=== PATIENT | female | born 1995 | race Caucasian/White ===

== ENCOUNTER 2024-07-20 06:11 | Day surgery (SDC) | payer BC, SELFPAY ==
[2024-07-20] VITALS (17 sets, daily range): BP systolic 118–139; BP diastolic 78–91; PULSE 74–97; RESP 14–20; TEMP 36.1–37; O2SAT 89–100; BMI 44.0
[2024-07-20 06:45] LABS: Ur HCG Qualitative* Negative (Negative)
--- NOTE | 2024-07-20 07:13 | W.PM.H&PU ---
History & Physical Update History & Physical Update H&P Reviewed and patient assessed: No changes noted
[2024-07-20] MEDS: 0.9 % SODIUM CHLORIDE 500 ML 500 ML 50 ML IV (07:15)
--- NOTE | 2024-07-20 07:16 | P.GSOP_ITS ---
Operative Note Date of procedure: 07/20/24 Pre-op diagnosis: 1. Right upper quadrant pain concerning for biliary colic. Post-op diagnosis: 1. Cholelithiasis. 2. Chronic cholecystitis. Type of Procedure: 1. Laparoscopic cholecystectomy. Indications: 29-year-old female was seen in clinic for evaluation of gallstones. The past 2- 3 years patient was having episodes of chest pain and abdominal pain. Her workup excluded cardiac etiology of her chest pain. She was found to have bicuspid aortic valve. Patient described the episodes of pain lasting from 20- 60 minutes after eating. She was not sure if greasy food was making her pain worse. She has been taking ibuprofen to help with her pain. Patient was referred for a gallbladder ultrasound that showed contracted gallbladder with cholelithiasis, the common bile duct was 3 mm in size. The gallbladder wall is 4 mm. On clinical exam she had no tenderness to palpation and had negative Reyes sign. Given patient's clinical history and her episodes of recurrent epigastric and right upper quadrant laparoscopic cholecystectomy was recommended. The procedure was discussed in detail. The risks associated procedure including infection, bleeding, injury to intra-abdominal organs, and injury to the common bile duct were all discussed with the patient, and she agreed to proceed. Procedure Description: After discussing the risks and benefits of the procedure, the patient signed informed consent.? The operative site was marked and the patient was brought to the operating room and placed on the operating table in supine position.? Care was taken to pad the patient's pressure points.?? The patient was then intubated by anesthesia.?? The operative site was then prepped and draped in the usual sterile fashion.? A time-out was then performed. A 5-mm laparoscopy port was placed in the left upper quadrant guided by a 5-mm laparoscope placed into a translucent trochar.~ Passage through the layers of the abdominal wall was visualized with the laparoscope.~ A pneumoperitoneum was established. A 0-degree 5-mm laparoscope was advanced into the abdomen. The abdomen was briefly surveyed, and no adhesions were noted. A 10-mm port were placed infraumbilically and two more 5 mm ports were placed on the right under direct visualization by laparoscope. The camera was then changed to 10 mm 30- degree scope and placed into the abdomen through the 10 mm port. The left upper quadrant port entrance was examined and no injury to intra-abdominal organs was identified. The gallbladder was identified, and was intrahepatic. The fundus grasped and retracted cephalad. Due to patient's body habitus I was barely able to identify infundibulum. The infundibulum was grasped and retracted laterally, exposing the peritoneum overlying the triangle of Calot. I stayed high on the gallbladder infundibulum to avoid injury to the duodenum which was immediately adjacent to the infundibulum. The peritoneum overlying the triangle of Calot was divided with hook cautery. The tissues surrounding the gallbladder infundibulum were difficult to dissect suggestive of chronic inflammation. The cystic artery was identified in the medial gallbladder and was dissected circumferentially bluntly and with hook cautery. The cystic artery was clearly going into the gallbladder. This was then clipped with two 5 mm clips on the patient's side and a single clip on the specimen side and divided with scissors. The tissues in the medial gallbladder fossa were further divided with hook cautery and bluntly with Sharifa dissector. A small vein was identified in the medial gallbladder fossa and that was going into the gallbladder. This was clipped with 5 mm clip on the specimen side and the patient's side and divided with scissors in between the clips. This had an appearance of small vein and inflammatory tissue. I then further dissected the gallbladder infundibulum. The tissues adjacent to the proximal infundibulum and distal cystic duct were very difficult to mobilize and separate from each other. The node of Calot was tightly adherent to the anterior infundibulum. A stayed high on the infundibulum to avoid injury to the common bile duct. The infundibulum of the gallbladder was then clipped with multiple 5 mm clips and divided between the clips to separate the gallbladder and cystic duct. A cuff of gallbladder mucosa was noted when the gallbladder was divided. The mucosa was cauterized with hook cautery. Since the infundibulum was not completely clamped across with 5 mm clips, I elected to put 2 0-0 PDS Endoloops just proximal to the clips to avoid cystic duct stump leak. The gallbladder was then dissected off the liver with hook cautery. This dissection was difficult given the intrahepatic nature of the gallbladder. The gallbladder wall was tearing apart and multiple stones spilled into the right upper quadrant. Those stones were removed through the 5 mm port. When the gallbladder was finally dissected off the gallbladder fossa, the camera was switched to a 5 mm camera and the gallbladder was placed into the Endo-Catch bag. Additional stones that were not previously removed were placed into the Endo-Catch bag as well. While removing the bag containing the gallbladder through the infraumbilical incision, the bag ripped and gallbladder and stones spilled onto the omentum. A new bag was then placed into the abdomen and gallbladder was placed into the new bag. All stones were collected and placed into the Endo-Catch bag. The fascia of the infraumbilical incision was then enlarged with cautery. The Endo-Catch bag containing the gallbladder was then removed from the abdomen. Surgical field was examined for bleeding and friable surface of the gallbladder fossa was cauterized. No bleeding was seen from the gallbladder fossa. The clips and Endoloops were in place. No additional stones were noted. The right upper quadrant was irrigated with normal saline. The fascia of the infraumbilical incision was then closed with a running 0-0 vicryl suture. This closure was examined intra-abdominally, and no intra- abdominal structures were incarcerated in the closure. Pneumoperitoneum was completely reduced after viewing removal of the trocars under direct vision. The skin was then closed with 4-0 monocryl and steristrips were applied. Instrument, sponge, and needle counts were correct at closure and at the conclusion of the case. The patient was transferred to PACU in stable condition. Findings: Chronic inflammation surrounding the gallbladder, multiple stones spilled into abdominal cavity. All the stones were collected and removed from the abdomen. Anesthesia: GETA Surgeon: Grazyna Mayorga MD Estimated blood loss (mL): 15 Specimen: Gallbladder Condition: stable Disposition: PACU
[2024-07-20] MEDS: SODIUM CHLORIDE 0.9 % (FLUSH) 10 ML SYRINGE IVF (07:25)
[2024-07-20] MEDS: CEFAZOLIN 2 GM INJ IVP (07:42)
[2024-07-20] MEDS: BUPIVACAINE 0.25% 30 ML INJECTION (09:47)
[2024-07-20] MEDS: LIDOCAINE 1%-EPI 1:100,000 20 ML INFILTRATI (09:47)
[2024-07-20] MEDS: 0.9 % SODIUM CHLORIDE 500 ML 500 ML 100 ML IV (10:22)
[2024-07-20] MEDS: ONDANSETRON 2 MG/ML inj 4 MG IVP (10:26)
[2024-07-20] MEDS: fentaNYL 100 MCG/2 ML inj 50 MCG IVP ×2 (10:34→10:43)
[2024-07-20] MEDS: HYDROCODONE-ACETAMIN 5-325 MG 1 TAB PO (12:07)
--- NOTE | 2024-07-24 18:26 | SUR.OPER ---
Preop time verification of chart completed by this nurse based on chart completion of Mary Leon and transfer to OR. Mary Peralta RN
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
== END 2024-07-20 12:39 | disposition home or self-care (01) ==
PROVIDERS: PCP Physician Assistant; Visit Provider Surgery
PROC: 0FT44ZZ Resection of Gallbladder, Percutaneous Endoscopic Approach (ICD-10-PCS; CPT 47562; principal; 2024-07-20 07:30)
DX: K80.10 Calculus of gallbladder with chronic cholecystitis without obstruction (principal); R10.11 Right upper quadrant pain
CPT/HCPCS: 47562; 00790; 81025; 88304; A9270; J0330; J0665; J0690; J1100; J1630; J2405; J2704; J3010; J3490; J7030

== ENCOUNTER 2024-07-20 16:03 | Emergency (ER) | payer BC, SELFPAY ==
[2024-07-20 16:08] VITALS: BP 117/85; PULSE 87; RESP 20; TEMP 36.8; O2SAT 94; BMI 43.3
--- NOTE | 2024-07-20 18:13 | ED_ITS ---
HPI - General Adult General Date Seen: 07/20/24 Chief complaint: Post Op Complication Stated complaint: Bleeding from belly button post op Time Seen by Provider: 07/20/24 18:16 History of Present Illness HPI narrative: 29-year-old female presenting to the ER today with concern for bleeding from her laparoscopic incision site at her belly button. She underwent a laparoscopic cholecystectomy by Dr. Yanez here at [facility] earlier today. From Dr. Mayorga's surgical note... A 10-mm port were placed infraumbilically and two more 5 mm ports were placed on the right under direct visualization by laparoscope. The camera was then changed to 10 mm 30-degree scope and placed into the abdomen through the 10 mm port. The left upper quadrant port entrance was examined and no injury to intra- abdominal organs was identified. The gallbladder was identified, and was intrahepatic. The fundus grasped and retracted cephalad. Due to patient's body habitus I was barely able to identify infundibulum. The infundibulum was grasped and retracted laterally, exposing the peritoneum overlying the triangle of Calot. I stayed high on the gallbladder infundibulum to avoid injury to the duodenum which was immediately adjacent to the infundibulum. The peritoneum overlying the triangle of Calot was divided with hook cautery. The tissues surrounding the gallbladder infundibulum were difficult to dissect suggestive of chronic inflammation. The cystic artery was identified in the medial gallbladder and was dissected circumferentially bluntly and with hook cautery. The cystic artery was clearly going into the gallbladder. This was then clipped with two 5 mm clips on the patient's side and a single clip on the specimen side and divided with scissors. The tissues in the medial gallbladder fossa were further divided with hook cautery and bluntly with Sharifa dissector. A small vein was identified in the medial gallbladder fossa and that was going into the gallbladder. This was clipped with 5 mm clip on the specimen side and the patient's side and divided with scissors in between the clips. This had an appearance of small vein and inflammatory tissue. I then further dissected the gallbladder infundibulum. The tissues adjacent to the proximal infundibulum and distal cystic duct were very difficult to mobilize and separate from each other. The node of Calot was tightly adherent to the anterior infundibulum. A stayed high on the infundibulum to avoid injury to the common bile duct. The infundibulum of the gallbladder was then clipped with multiple 5 mm clips and divided between the clips to separate the gallbladder and cystic duct. A cuff of gallbladder mucosa was noted when the gallbladder was divided. The mucosa was cauterized with hook cautery. Since the infundibulum was not completely clamped across with 5 mm clips, I elected to put 2 0-0 PDS Endoloops just proximal to the clips to avoid cystic duct stump leak. The gallbladder was then dissected off the liver with hook cautery. This dissection was difficult given the intrahepatic nature of the gallbladder. The gallbladder wall was tearing apart and multiple stones spilled into the right upper quadrant. Those stones were removed through the 5 mm port. When the gallbladder was finally dissected off the gallbladder fossa, the camera was switched to a 5 mm camera and the gallbladder was placed into the Endo-Catch ba g. Additional stones that were not previously removed were placed into the Endo-Catch bag as well. While removing the bag containing the gallbladder through the infraumbilical incision, the bag ripped and gallbladder and stones spilled onto the omentum. A new bag was then placed into the abdomen and gallbladder was placed into the new bag. All stones were collected and placed into the Endo-Catch bag. The fascia of the infraumbilical incision was then enlarged with cautery. The Endo-Catch bag containing the gallbladder was then removed from the abdomen. Surgical field was examined for bleeding and friable surface of the gallbladder fossa was cauterized. No bleeding was seen from the gallbladder fossa. The clips and Endoloops were in place. No additional stones were noted. The right upper quadrant was irrigated with normal saline. The fascia of the infraumbilical incision was then closed with a running 0-0 vicryl suture. This closure was examined intra-abdominally, and no intra- abdominal structures were incarcerated in the closure.... Patient was discharged home. She had about 5 crackers and a small box of apple juice postoperatively. About an hour and a half after she got home she started having bleeding with blood dripping from her umbilical incision. She apparently soaked through a couple of pieces of paper towel and several pieces of sq gauze. Bleeding is now stopped. She was feeling weak and dizzy. Her noticed that she looked quite pale and yellow. At home. She is also having abdominal pain. No fever. No bleeding from her other incisions. The Steri-Strips from her infraumbilical incision have peeled off. The incision is not open. No surrounding redness. Related Data Previous Rx's ?Medication ?Instructions ?Recorded hydrocodone 5 mg-acetaminophen 325 1 tab PO Q6H PRN pain #25 tabs 07/20/24 mg tablet Allergies Allergy/AdvReac Type Severity Reaction Status Date / Time NKA Allergy Mild Uncoded 07/20/24 19:09 [facility] Medical History (Updated 07/20/24 @ 20:28 by Paresh Del Angel MD) Mobitz type 1 second degree atrioventricular block ?I44.1 - Atrioventricular block, second degree (ICD-10) Keratosis pilaris ?L85.8 - Other specified epidermal thickening (ICD-10) Eczema ?L30.9 - Dermatitis, unspecified (ICD-10) GERD (gastroesophageal reflux disease) ?K21.9 - Gastro-esophageal reflux disease without esophagitis (ICD-10) Bicuspid aortic valve ?Q23.81 - Bicuspid aortic valve (ICD-10) Surgical History (Updated 07/17/24 @ 11:25 by Marky Espinoza RN) History of tympanoplasty ?Z98.890 - Other specified postprocedural states (ICD-10) Social History Smoking Status: Never smoker How often do you have a drink containing alcohol: monthly or less AUDIT-C Alcohol total score: 1 Non-prescribed substance use: denies use Exam Narrative: Exam Narrative: Constitutional: Appears well-developed and well-nourished. Alert. Conversant. Non toxic. HENT: Head: Atraumatic. Nose: Nose normal. Mouth/Throat: Oral mucosa is clear and moist. no trismus. Pharynx normal. Tonsils symmetric. No tonsillar enlargement, erythema, or exudate. Eyes: Conjunctivae normal. EOM normal. Pupils equal, round, and reactive to light. No scleral icterus. Neck: Normal range of motion. Neck supple. No tracheal deviation present. Cardiovascular: Normal rate, regular rhythm. No gallop. No friction rub. No murmur heard. Symmetric radial artery pulses Pulmonary/Chest: Effort normal. No stridor. No respiratory distress. No wheezes. No rales. No rhonchi . No tenderness. Abdominal: Soft. Bowel sounds normal. Mild distension. No mass. mild diffuse tenderness. No rebound. No guarding. she has 3 incisions across her upper abdomen that all appear to be well apposed and dry. No bleeding from them. Her umbilical incision has signs of recent bleeding with dry blood on the skin. This Steri-Strips have peeled off. I am able to visualize the external incision and the skin edges well apposed. There is no active bleeding at this time. Musculoskeletal: RUE: Normal range of motion. No tenderness. No deformity LUE: Normal range of motion. No tenderness. No deformity RLE: Normal range of motion. No edema. No tenderness. No deformity LLE: Normal range of motion. No edema. No tenderness. No deformity Neurological: Alert and oriented to person, place, and time. Normal strength. CN II-VII intact. No sensory deficit. GCS eye subscore is 4. GCS verbal subscore is 5. GCS motor subscore is 6. Normal coordination Skin: Skin is warm and dry. No rash noted. No pallor. Normal capillary refill. Psychiatric: Normal mood. Normal affect. Const: Vital Signs, click to edit/add: Vital Signs - 24 hr 07/20/24 16:08 07/20/24 19:33 Temperature 98.3 F Pulse Rate [Pulse Oximeter] 87 94 Respiratory Rate 20 16 Blood Pressure [Ri ght Upper Arm] 117/85 138/85 Pulse Oximetry 94 94 Oxygen Delivery Me thod Room Air Room Air Course Course ED Course: Recheck ambulatory in the hallway to the bathroom. Not is lightheaded anymore. Reevaluation(s) Reevaluation #1: Recheck recheck-CT back. Shows no sign of internal bleeding. Hemoglobin stable. Patient's lightheadedness and weakness is better. She did have another episode of bleeding from the skin of the incision which has now stopped. At this point workup is reassuring. She has stable vital signs, normal hemoglobin, no active external bleeding, and no sign of any internal bleeding from this incision. Because of the episodic bleeding from the incision here in the ER and the Steri- Strips have peeled off, we did apply topical Dermabond to help close the wound edge and maintain hemostasis. Procedure: Application of Dermabond for bleeding abdominal incision. Preparation using sterile saline and Shur-Clens wound cleanser. We then used 1 ampule of Dermabond to cover the wound. Patient tolerated procedure well. No discomfort. Vital Signs Vital signs: Initial Vital Signs Temperature 98.3 F 07/20/24 16:08 Temperature Source Temporal Artery Scan 07/20/24 16:08 Pulse Rate 87 07/20/24 16:08 Respiratory Rate 20 07/20/24 16:08 Blood Pressure 117/85 07/20/24 16:08 Blood Pressure Mean 95 07/20/24 16:08 Blood Pressure Position Sitting 07/20/24 16:08 Pulse Oximetry 94 07/20/24 16:08 Oxygen Delivery Method Room Air 07/20/24 16:08 Vital Signs Temperature 98.3 F 07/20/24 16:08 Pulse Rate 87 07/20/24 16:08 Respiratory Rate 20 07/20/24 16:08 Blood Pressure 117/85 07/20/24 16:08 Pulse Oximetry 94 07/20/24 16:08 Oxygen Delivery Method Room Air 07/20/24 16:08 Temperature 98.3 F 07/20/24 16:08 Pulse Rate 94 07/20/24 19:33 Respiratory Rate 16 07/20/24 19:33 Blood Pressure 138/85 07/20/24 19:33 Pulse Oximetry 94 07/20/24 19:33 Oxygen Delivery Method Room Air 07/20/24 19:33 Medications Administered Medications: Discontinued Medications Generic Name Dose Route Start Last Admin Trade Name Freq PRN Reason Stop Dose Admin Sodium Chloride 500 mls @ 500 mls/hr 07/20/24 18:33 07/20/24 20:06 0.9 % Sodium Chloride 500 Ml IV 07/20/24 19:32 Infused .Q1H ONE Infusion Medical Decision Making MDM Narrative Medical decision making narrative: Pleasant 29-year-old female who experienced laparoscopic cholecystectomy this morning and then had bleeding from her umbilical laparoscopic incision this afternoon presenting to the ER. She does report bleeding that happened at home and soaked through several squares of gauze, but is now stopped with external bleeding. She still his a little bit shaky and weak. notes that she looked ?yellow? at home. I do not think this represents jaundice. Suspect it was probably pallor from a weakness. Here in the ER her external bleeding has ceased. She still feels a bit weak and does have abdominal pain. Difficult to know if her pain is as would expect from postop or could be symptom of ongoing bleeding from the internal and of her umbilical port site. Laboratory workup showed confirms a normal hemoglobin. CT scan is obtained and shows no evidence for any fluid collection adjacent to the umbilical port site, in the skin of the abdominal wall. There is no sign of any active internal bleeding. CT and labs are reassuring. I suspect that this probably was a self-limited external bleed from the superficial end of her incision. This Steri-Strips did peel off already. No evidence for any hemodynamically significant blood loss. No evidence for active bleeding. At this point in the she needs to be admitted for hemoglobin monitoring and does not require transfusion. She had been essentially and p.o. since 5:00 p.m. last night save for a few crackers and a small box of juice. She is is feeling better after p.o. here in the ER and IV fluids. She did have 1 brief episode of recurrent bleeding from the wound after she got up here in the ER. This was again controlled by direct pressure. After discussing risks and benefits we decided to go ahead and apply Dermabond to the wound because the Steri true strips and peeled off. This might help her maintain hemostasis at home. We applied Dermabond she tolerated well. Discussed the risk for infection precautions for return to the ER (or follow-up right away with her surgeon) if she develops redness, purulent drainage from the wound, fever, or worsening pain. We also discussed steps to take if she has recurrent bleeding from the wound at home, appropriate application of direct pressure and precautions for return to the ER. Questions answered. The patient, her , and her mother are pleased and eager for discharge. Lab Data Labs: Lab Results 07/20/24 Range/Units 18:55 WBC 12.25 H (4.50-11.00) K/uL RBC 4.64 (4.00-5.20) m/uL Hgb 13.9 (12.0-16.0) gm/dL Hct 41.3 (33.0-51.0) % MCV 89 (80-100) fL MCH 30 (26-34) pg MCHC 34 (32-36) gm/dL RDW Coeff of Pardeep 12.4 (11.5-15.5) % Plt Count 292 (140-440) K/uL Neut % (Auto) 91.4 H (42.0-72.0) % Lymph % (Auto) 5.5 L (20-44) % Hamilton % (Auto) 2.9 (0.0-11.0) % Eos % (Auto) 0.0 (0.0-7.0) % Baso % (Auto) 0.0 (0.0-3.0) % Neut # (Auto) 11.20 H (1.7-7.0) K/uL Lymph # (Auto) 0.70 L (0.90-2.90) K/uL Hamilton # (Auto) 0.40 (0.00-0.90) K/UL Eos # (Auto) 0.00 (0.00-0.50) K/uL Baso # (Auto) 0.00 (0.00-0.30) K/uL Abs Immat Gran (auto) 0.00 (0.00-0.30) K/uL Imm/Tot Granulo (auto) 0.2 % Sodium 135 (135-149) mmol/L Potassium 4.2 (3.6-5.1) mmol/L Chloride 105 (96-114) mmol/L Carbon Dioxide 17 L (20-32) mmol/L Anion Gap 13 (7-15) mEq/L BUN 14 (5-24) mg/dL Creatinine 0.8 (0.5-1.5) mg/dL Estimated Creat Clear 94.21 Estimated GFR 103 ml/min Glucose 163 H (60-115) mg/dL Calcium 9.1 (8.4-10.6) mg/dL Imaging Data CT scan - abdomen: Attestation: I have reviewed the pertinent imaging results. Radiologist's impression: Impression: Evolving postsurgical changes as above. Suspect that reported hemorrhage from the belly button represents postoperative bleeding from port hole placement. Discharge Plan Discharge Clinical Impression: Post-op bleeding Patient Disposition: Home, Self-Care Condition: Stable Instructions: Postoperative Bleeding (ED) Additional Instructions: So far your workup looks reassuring. There is no sign of any internal bleeding. Your hemoglobin is normal. No sign of any dangerous amount of blood loss. We suspect this was bleeding from the superficial edge of your incision. Not a dangerous amount of bleeding so far. Monitor your incision carefully. If you have recurrent bleeding apply pressure with her finger for and a small amount of gauze for 10 minutes. If bleeding is not controlled, reapply pressure for 10 more minutes. If bleeding is still not controlled, come back to the ER. Watch the incision (in all of her incisions) for redness, swelling, or pus which may be signs of an infection. As long as you are doing well, Follow-up with your surgeon next week as scheduled. Please Return to the ER right away if you have any problems.. Prescriptions: No Action hydrocodone-acetaminophen 5-325 mg tablet 1 tab PO Q6H PRN (Reason: pain) Qty: 25 0RF Follow Up/Referrals: Lita Azevedo PA-C [Primary Care Provider] - Stand Alone Forms: [employer] Info Instructions
--- NOTE | 2024-07-20 18:33 | CRLHL7_ITS ---
For Patients: As a result of the Century Cures Act, medical imaging exams and procedure reports are released immediately into your electronic medical record. You may view this report before your referring provider. If you have questions, please contact your health care provider. Indication: Technique: CT through the abdomen and pelvis following mL IV contrast Comparison: Bleeding from belly button after cholecystectomy this morning Findings: Lower chest: Bibasilar atelectasis. Hepatobiliary: No significant parenchymal abnormality is appreciated. Cholecystectomy. Minimal fluid in the gallbladder fossa. Spleen: Unremarkable. Pancreas: No acute abnormality appreciated. Adrenal glands: No acute abnormality appreciated. Kidneys: No significant parenchymal abnormality appreciated. No visualized calculi. No hydronephrosis. Bowel: No obstruction. No focal perienteric or pericolonic stranding is appreciated. Vascular: No acute abnormality appreciated. Lymph nodes: No gross lymphadenopathy. Peritoneum: Trace free air, likely postsurgical. : No acute abnormality appreciated. Soft tissues: Trace soft tissue stranding and gas from port hole placement. Bones: No acute fracture. No lytic or blastic lesion. Impression: Evolving postsurgical changes as above. Suspect that reported hemorrhage from the belly button represents postoperative bleeding from port hole placement. Please note that all CT scans at this facility use dose modulation, iterative reconstruction, and/or weight-based dosing when appropriate to reduce radiation dose to as low as reasonably achievable. Dictated by Navneet Smart MD @ 07/20/2024 7:52:02 PM (Electronically Signed)
[2024-07-20] MEDS: 0.9 % SODIUM CHLORIDE 500 ML 500 ML IV (19:29)
[2024-07-20 19:33] VITALS: BP 138/85; PULSE 94; RESP 16; O2SAT 94
[2024-07-20 19:45] LABS: Hematocrit 41.3 % (33.0-51.0); Hemoglobin* 13.9 gm/dL (12.0-16.0); Immature Granulocytes Pct Auto 0.2 %; Lymphocytes Percent Auto 5.5 % (20-44); Mean Corpuscular HGB Conc 34 gm/dL (32-36); Mean Corpuscular Hemoglobin 30 pg (26-34); Mean Corpuscular Volume 89 fL (80-100); Monocytes Percent Auto 2.9 % (0.0-11.0); Neutrophils Percent Auto 91.4 % (42.0-72.0); Platelet Count* 292 K/uL (140-440); RDW Coefficient of Variation % 12.4 % (11.5-15.5); Red Blood Count 4.64 m/uL (4.00-5.20); White Blood Count* 12.25 K/uL (4.50-11.00)
[2024-07-20 19:53] LABS: Slide Review Reflex No
[2024-07-20 19:57] LABS: Chloride* 105 mmol/L (96-114); Potassium* 4.2 mmol/L (3.6-5.1); Sodium* 135 mmol/L (135-149)
[2024-07-20 20:00] LABS: Anion Gap 13 mEq/L (7-15); Blood Urea Nitrogen* 14 mg/dL (5-24); Carbon Dioxide* 17 mmol/L (20-32); Creatinine* 0.8 mg/dL (0.5-1.5); Est. Creatinine Clearance* 94.21; Estimated Glomerular Filt Rate 103 ml/min
[2024-07-20 20:01] LABS: Calcium* 9.1 mg/dL (8.4-10.6); Glucose* 163 mg/dL (60-115)
== END 2024-07-20 21:05 | disposition home or self-care (01) ==
PROVIDERS: Emergency Provider Emergency Medicine; PCP Physician Assistant
DX: L76.22 Postprocedural hemorrhage of skin and subcutaneous tissue following other procedure (principal)
CPT/HCPCS: 12001; 36415; 74177; 80048; 85025; 99283; 99284; J7030; Q9967